=== PATIENT | female | born 1990 | race Caucasian/White ===

== ENCOUNTER 2017-05-03 20:47 | Emergency (ER) | payer OTHER ==
[2017-05-03 20:57] VITALS: BP 140/91
--- NOTE | 2017-05-03 21:02 | ED Physician Documentation ---
History of Present Illness - Stated complaint Stated Complaint: BREAST PX - Chief complaint Chief Complaint: General - History obtained from History obtained from: Patient - History of Present Illness Timing: How many days ago (3) Pain level max: 0 Pain level now: 0 Improved by: nothing Worsened by: nothing - Additonal information Additional information: 26 year old female R breast redness, swelling x 3 days. Gave 12 days ago. States fevers today. Review of Systems Constitutional: reports: Fever, Chills Ears: denies: Ear pain Nose: denies: Rhinorrhea / runny nose, Congestion Throat: denies: Sore throat Cardiac: denies: Chest pain / pressure Respiratory: denies: Cough GI: reports: Nausea (occasionally). denies: Abdominal Pain, Vomiting, Diarrhea : denies: Dysuria, Frequency, Hesitancy Skin: denies: Rash Musculoskeletal: denies: Neck pain, Back pain Neurologic: denies: Headache PD PAST MEDICAL HISTORY - Past Medical History Past Medical History: No - Past Surgical History Past Surgical History: No - Present Medications Home Medications: Ambulatory Orders Medication Instructions Recorded Confirmed Clindamycin HCl [Clindamycin 300MG 300 mg PO Q6H #28 capsule 05/03/17 [facility]] - Allergies Allergies/Adverse Reactions: Allergies Allergy/AdvReac Type Severity Reaction Status Date / Time azithromycin [From Zithromax] Allergy Hives Verified 05/03/17 20:57 Penicillins Allergy Unknown Verified 05/03/17 20:57 amoxicillin AdvReac Emesis Verified 05/03/17 20:57 - Living Situation Living Situation: reports: With family Living Arrangement: reports: At home - Social History Does the pt have substance abuse?: No - Family History Family history: reports: Non contributory PD ED PE NORMAL - Vitals Vital signs reviewed: Yes - General General: Alert and oriented X 3 - HEENT HEENT: Moist mucous membranes - Neck Neck: Supple, no meningeal sign - Cardiac Cardiac: RRR, Strong equal pulses - Respiratory Respiratory: No respiratory distress, Clear bilaterally - Derm Derm: Warm and dry, Other (redness and mild swelling to the R breast. no abscess. ) - Neuro Neuro: Alert and oriented X 3 - Psych Psych: Normal mood, Normal affect Results - Vitals Vitals: Vital Signs - 24 hr 05/03/17 20:54 Temperature 39.5 C H Heart Rate 118 H Respiratory 17 Rate Blood Pressure 140/91 H O2 Saturation 99 Oxygen O2 Source Room air PD MEDICAL DECISION MAKING - ED course Complexity details: reviewed results, re-evaluated patient, considered differential, d/w patient ED course: Patient is a 26-year-old female with right breast mastitis. Will place on clindamycin as she has allergies to penicillin and amoxicillin and does not know what they are. She states she was told to never take them.Patient is well- appearing, nontoxic. Patient counseled regarding signs and symptoms for which I believe and urgent re-evaluation would be necessary. Patient with good understanding of and agreement to plan and is comfortable going home at this time This document was made in part using voice recognition software. While efforts are made to proofread this document, sound alike and grammatical errors may occur. Departure - Departure Disposition: 01 Home, Self Care Clinical Impression: Mastitis Condition: Good Instructions: ED Breast Infec Follow-Up: OJSE YOUNG MD [Primary Care Provider] - Within 3 Days (for recheck of infection) Prescriptions: Clindamycin HCl [Clindamycin 300MG CAP] 300 mg PO Q6H #28 capsule Comments: Return if you worsen. Take all antibiotics until gone. You may continue . Discharge Date/Time: 05/03/17 22:04
[2017-05-03] MEDS ORDERED: ACETAMINOPHEN 325 MG TABLET PO STA (21:11)
== END 2017-05-03 22:04 | disposition home or self-care (01) ==
LOC: ED 20:47
DX: N61.0 Mastitis without abscess (principal)
CPT/HCPCS: 99283; A9270